=== PATIENT | male | born 1990 | race Caucasian/White ===

== ENCOUNTER 2021-06-27 10:11 | Emergency (ER) | payer OTHER, SELFPAY ==
[2021-06-27 10:29] VITALS: BP 169/98; PULSE 67; RESP 16; TEMP 36.6; O2SAT 98; BMI 29.8
--- NOTE | 2021-06-27 10:55 | ED_ITS ---
HPI - Abdominal Pain General: Chief Complaint: Abdominal Pain Stated Complaint: ABD/lower back pain Time Seen by Provider: 06/27/21 10:35 History of Present Illness: 31-year-old male presents with left upper quadrant pain that radiates to his left flank. Patient reports that he had an episode about a week ago that resolved after about a day. Then a couple days ago he had the pain returned. He thought maybe is musculoskeletal when saw his chiropractor with no relief. That this morning it was significantly worse. He gets worse with movement. He denies any nausea, vomiting, fever, chills or urinary symptoms. The pain started in the left upper abdomen and radiates to the left flank. Associated Symptoms: Denies chills, fever(s), nausea and vomiting Review of Systems Const: Denies: fever(s) or chills Card: Denies: chest pain or palpitations Resp: Denies: dyspnea, productive cough or non-productive cough GI: Reports: abdominal pain; Denies: nausea or vomiting : Reports: flank pain Musc: Reports: back pain; Denies: neck pain Skin/Breast: Denies: rash Neuro: Denies: headache(s) Physical Exam Const: COMMON NORMALS: no acute distress, average body habitus and patient oriented x3 HENMT: COMMON NORMALS: normocephalic, hearing grossly normal bilaterally and moist oral mucous membranes HEAD & SCALP: normocephalic Chest: COMMONS NORMALS: normal inspection of the chest Resp: COMMON NORMALS: normal respiratory effort, No retractions and No use of accessory muscles Cardio: COMMON NORMALS: regular rate, regular rhythm and Peripheral pulses 2+ throughout RATE: regular rate RHYTHM: regular rhythm PERIPHERAL PULSES: Peripheral pulses 2+ throughout GI: COMMON NORMALS: Soft to palpation PALPATION: Yes Soft to palpation and Yes Tenderness to palpation present (GI) Details: LUQ : BLADDER/KIDNEY EXAM: Yes CVA tenderness on the left (MILD ) Back/Pelvis: GENERAL BACK: Yes CVA tenderness THORACIC SPINE/UPPER BACK: Yes normal to inspection and Yes thoracic ROM normal Extremity: COMMON NORMALS: normal to inspection and full ROM Neuro: COMMON NORMALS: patient oriented x3, no focal motor deficits and no sensory deficits noted Psych: COMMON NORMALS: mental status grossly normal, Normal thought process present, cooperative and normal affect THOUGHT PROCESS: Normal thought process present Course Vital Signs: Vital signs: Vital Signs Temperature 98.1 F 06/27/21 12:36 Pulse Rate 55 L 06/27/21 12:36 Respiratory Rate 16 06/27/21 12:36 Blood Pressure 128/77 06/27/21 12:36 Pulse Oximetry 99 06/27/21 12:36 MDM - Abdominal Pain Medical Decision Making Patient with no acute findings on labs, hematuria or urinary tract infection. Discussed findings with patient. Patient was offered CT abdomen pelvis but declined at this time. Patient feels more like it is a muscle strain. I will prescribe him Naprosyn and Flexeril. He will return to the ER if symptoms continue to worsen or follow-up with his primary care provider. I double checked with patient to ensure no CT prior to discharge since a history of a prior kidney calculus but once again declined. He was stable upon discharge. Lab Data : 06/27/21 10:55 06/27/21 10:55 Labs/Radiology: Laboratory Results WBC 6.7 10^3/uL (4.0-10.0) 06/27/21 10:55 RBC 5.85 10^6/uL (4.1-5.3) H 06/27/21 10:55 Hgb 17.1 g/dL (11.7-16.6) H 06/27/21 10:55 Hct 50.7 % (42.0-52.0) 06/27/21 10:55 MCV 86.7 fl (80-94) 06/27/21 10:55 MCH 29.2 pg (28.0-34.0) 06/27/21 10:55 MCHC 33.7 g/dL (30.0-36.0) 06/27/21 10:55 RDW 11.7 % (12.1-15.1) L 06/27/21 10:55 Plt Count 323 10^3/cmm (130-400) 06/27/21 10:55 MPV 9.9 fL (7.4-10.4) 06/27/21 10:55 Neut % (Auto) 57.6 % 06/27/21 10:55 Lymph % (Auto) 29.3 % 06/27/21 10:55 [place] % (Auto) 8.6 % 06/27/21 10:55 Eos % (Auto) 3.6 % 06/27/21 10:55 Baso % (Auto) 0.6 % 06/27/21 10:55 Neut # (Auto) 3.88 10^3/uL (1.8-7.7) 06/27/21 10:55 Lymph # (Auto) 2.0 10^3/uL (0.8-4.8) 06/27/21 10:55 [place] # (Auto) 0.6 10^3/uL (0.2-0.9) 06/27/21 10:55 Eos # (Auto) 0.2 10^3/uL (0.0-0.8) 06/27/21 10:55 Baso # (Auto) 0.0 10^3/uL (0.0-0.1) 06/27/21 10:55 Nucleated RBC % (auto) 0 % 06/27/21 10:55 Nucleated RBCs # 0.0 /100WBC 06/27/21 10:55 Sodium 139 mmol/L (136-145) 06/27/21 10:55 Potassium 3.9 mmol/L (3.5-5.1) 06/27/21 10:55 Chloride 100 mmol/L (98-107) 06/27/21 10:55 Carbon Dioxide 28 mmol/L (22-29) 06/27/21 10:55 Anion Gap 14.9 (5-19) 06/27/21 10:55 BUN 12 mg/dL (6-20) 06/27/21 10:55 Creatinine 1.0 mg/dL (0.7-1.2) 06/27/21 10:55 GFR Calculation 87.7 mL/min (90-130) L 06/27/21 10:55 Glucose 101 mg/dL (65-115) 06/27/21 10:55 Calculated Osmolality 288 mOsm/kg (285-295) 06/27/21 10:55 Calcium 9.5 mg/dL (8.5-10.5) 06/27/21 10:55 Total Bilirubin 0.4 mg/dL (0.15-1.2) 06/27/21 10:55 AST 21 U/L (0-40) 06/27/21 10:55 ALT 23 U/L (0-41) 06/27/21 10:55 Alkaline Phosphatase 75 IU/L (40-130) 06/27/21 10:55 C-Reactive Protein 3.0 mg/L (0.0-4.9) 06/27/21 10:55 Total Protein 8.1 g/dL (6.6-8.7) 06/27/21 10:55 Albumin 5.2 g/dL (3.5-5.2) 06/27/21 10:55 Globulin 2.9 g/dL (1.3-4.6) 06/27/21 10:55 Lipase 19 U/L (13-60) 06/27/21 10:55 Urine Color Yellow (Yellow) 06/27/21 10:55 Urine Appearance Clear (CLEAR) 06/27/21 10:55 Urine pH 6 (5-7) 06/27/21 10:55 Ur Specific [place] 1.015 (1.005-1.030) 06/27/21 10:55 Urine Protein Neg (Negative) 06/27/21 10:55 Urine Glucose (UA) Norm (Normal) 06/27/21 10:55 Urine Ketones Negative (Negative) 06/27/21 10:55 Urine Blood Neg (Negative) 06/27/21 10:55 Urine Nitrate Negative (Negative) 06/27/21 10:55 Urine Bilirubin Neg (Negative) 06/27/21 10:55 Urine Urobilinogen Norm mg/dL (Negative) 06/27/21 10:55 Ur Leukocyte Esterase Negative (Negative) 06/27/21 10:55 Discharge Plan Discharge Patient Disposition: Home Clinical Impression: Abdominal pain, acute, left upper quadrant, Strain of abdominal wall Condition: Stable Prescriptions: New cyclobenzaprine 10 mg tablet 10 mg PO Q8H Qty: 14 0RF naproxen 500 mg tablet 500 mg PO BID PRN (Reason: pain) Qty: 30 0RF Discharge Orders: Discharge ED (Routine); Ordered 06/27/21 Ordered By: Lamberto Falcon Discharge Diet: Usual diet Discharge Activity: Increase activity as tolerated Patient Instructions: Abdominal Pain (ED), Opioid Safety Activity Restrictions/Additional Instructions: Follow-up with their primary care provider if symptoms or not improving in the next 3 to 4 days or return to the ER if they get significantly worse Coding Level of Care Code 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
[2021-06-27 10:57] VITALS: BP 99/59; PULSE 50; RESP 18; TEMP 36.9; O2SAT 97
[2021-06-27 10:59] LABS: Add Urine Microscopic? NO; Charge for UA Resulting for Rev
[2021-06-27] MEDS: ketorolac 30 mg/mL INJ 15 MG IVP (11:01)
[2021-06-27 11:03] VITALS: BP 101/57; PULSE 51; RESP 18; O2SAT 96
[2021-06-27 11:05] LABS: Bilirubin Urine Neg (Negative); Blood Urine Neg (Negative); Glucose Urine UA Norm (Normal); Ketones Urine Negative (Negative); Leukocyte Esterase Urine Negative (Negative); Nitrate Urine Negative (Negative); Protein Urine Neg (Negative); Specific Gravity, Urine 1.015 (1.005-1.030); Urine Appearance Clear (CLEAR); Urine Color Yellow (Yellow); Urobilinogen Urine Norm (Negative); pH Urine 6 (5-7)
[2021-06-27 11:08] LABS: Basophils % 0.6 %; Eosinophils # 0.2 10^3/uL (0.0-0.8); Eosinophils % 3.6 %; Hematocrit 50.7 % (42.0-52.0); Hemoglobin 17.1 g/dL (11.7-16.6); Lymphocytes % 29.3 %; Mean Corpuscular HGB Conc 33.7 g/dL (30.0-36.0); Mean Corpuscular Hemoglobin 29.2 pg (28.0-34.0); Mean Corpuscular Volume 86.7 fl (80-94); Mean Platelet Volume 9.9 fL (7.4-10.4); Monocytes # 0.6 10^3/uL (0.2-0.9); Monocytes % 8.6 %; Neutrophils # 3.88 10^3/uL (1.8-7.7); Neutrophils % 57.6 %; Nucleated Red Blood Cells % 0 %; Platelet Count 323 10^3/cmm (130-400); Red Blood Count 5.85 10^6/uL (4.1-5.3); Red Cell Distribution Width 11.7 % (12.1-15.1); White Blood Count 6.7 10^3/uL (4.0-10.0)
[2021-06-27] MEDS: ondansetron 2 mg/ML SDV 2 mL 4 MG IVP (11:09)
--- NOTE | 2021-06-27 11:12 | PC.NURSE ---
Became faint, weak & pale upon IV placement. Zofran for nausea, toradol for pain. Pt resting.
[2021-06-27 11:17] LABS: Alanine Aminotransferase 23 U/L (0-41); Albumin Level 5.2 g/dL (3.5-5.2); Alkaline Phosphatase 75 IU/L (40-130); Anion Gap 14.9 (5-19); Aspartate Amino Transferase 21 U/L (0-40); Blood Urea Nitrogen 12 mg/dL (6-20); Calcium 9.5 mg/dL (8.5-10.5); Carbon Dioxide 28 mmol/L (22-29); Chloride 100 mmol/L (98-107); Globulin 2.9 g/dL (1.3-4.6); Glomerular Filtration Rate 87.7 mL/min (90-130); Glucose 101 mg/dL (65-115); Lipase 19 U/L (13-60); Osmolality Calculated 288 mOsm/kg (285-295); Potassium 3.9 mmol/L (3.5-5.1); Sodium 139 mmol/L (136-145); Total Bilirubin 0.4 mg/dL (0.15-1.2); Total Protein 8.1 g/dL (6.6-8.7)
[2021-06-27 11:31] VITALS: BP 122/74; PULSE 53; RESP 16; O2SAT 97
[2021-06-27] MEDS: orphenadrine 30 mg/mL Inj 2 mL 60 MG IVP (12:11)
[2021-06-27 12:36] VITALS: BP 128/77; PULSE 55; RESP 16; TEMP 36.7; O2SAT 99
== END 2021-06-27 12:43 | disposition home or self-care (01) ==
PROVIDERS: Emergency Provider Student in an Organized Health Care Education/Training Program
DX: S39.011A Strain of muscle, fascia and tendon of abdomen, initial encounter (principal); X58.XXXA Exposure to other specified factors, initial encounter; Z87.442 Personal history of urinary calculi
CPT/HCPCS: 80053; 81003; 83690; 85025; 86140; 96374; 96375; 99283; J1885; J2360; J2405

== ENCOUNTER 2023-07-12 13:07 | Outpatient (CLI) | payer OTHER, SELFPAY ==
--- NOTE | 2023-07-12 09:38 | XR_ITS ---
WS: [id number] Lumbar spine, 3 views, 07/12/2023 Clinical Data: LOW BACK PAIN X 3 WEEKS Comparison: None. Findings: No compression fractures or subluxation is seen. No disc space narrowing is seen. The transverse proc esses and SI joints are normal. XR/XR lumbar spine 2-3V* [id number] Impression: Negative lumbar spine.
== END 2023-07-12 13:08 | disposition home or self-care (01) ==
LOC: RADOUTREAD 13:09
PROVIDERS: Visit Provider Family Medicine
DX: M54.50 Low back pain, unspecified (principal)
CPT/HCPCS: 72100